=== PATIENT | female | born 1995 | race Caucasian/White ===

== ENCOUNTER 2018-12-20 14:20 | Emergency (ER) | payer OTHER, MEDICAID ==
[2018-12-20] MEDS: ACETAMINOPHEN 500 MG TAB PO (15:09)
[2018-12-20 15:16] LABS: URINE BLOOD (Dip) POC 1+ (NEGATIVE); URINE GLUCOSE (Dip) POC Negative (NEGATIVE); URINE KETONES (Dip) POC Trace (NEGATIVE); URINE LEUKOCYTE EST (Dip) POC 3+ (NEGATIVE); URINE NITRITE (Dip) POC Positive (NEGATIVE); URINE TOTAL PROTEIN POC 3+ (NEGATIVE)
[2018-12-20] MEDS: CEFTRIAXONE 1 GM INJ IM (15:29)
[2018-12-20] MEDS: LIDOCAINE 1% (MDV) 20 ML INJ SC (15:30)
== END 2018-12-20 16:07 | disposition home or self-care (01) ==
LOC: FTE 14:20
DX: N39.0 Urinary tract infection, site not specified (principal)
CPT/HCPCS: 81003; 81025; 96372; 99284-25